=== PATIENT | female | born 1930 | race Caucasian/White ===

== ENCOUNTER → 2017-01-12 | Outpatient (CLI) | payer MEDICARE, BC ==
[~2017-01-12] MED LIST: "\\\"PREP SPRAY\\\"-TIN4 OZ"; ALTACE10 M1 PO; AMLODIPINE BESY10 MG; ANTIVERT12.5 MG PO; CARDIZEM CD (T240 MG PO; COLACE100 MG PO; IMODIUM2 MG PO; LASIX20 MG PO; MULTAQ400 MG; NITROSTAT 0.40.4 MG SL; NORCO 5-325 MG1 TAB PO; PROTONIX40 M1 PO; XANAX0.25 MG PO; XARELTO20 MG PO
== END | disposition disaster alternative care site (69) ==
LOC: GAMB 14:00
DX: I47.1 Supraventricular tachycardia (principal); I48.91 Unspecified atrial fibrillation; Z79.01 Long term (current) use of anticoagulants; Z79.899 Other long term (current) drug therapy; Z88.5 Allergy status to narcotic agent
CPT/HCPCS: A0425; A0427